=== PATIENT | male | born 1955 | race Caucasian/White ===

== ENCOUNTER 2022-08-10 23:26 | Inpatient (IN) | payer MEDICARE, OTHER ==
[~2022-08-10] VITALS: Ht 182.9 cm; Wt 63.5 kg
--- NOTE | 2022-08-10 23:40 | NUR ---
Patient BIB [facility] ambulance unit 51 from [facility] to be medically cleared to be seen by PET TEAM and admitted to MHU. Per report from transport team, patient had Ativan 2mg and Zofran 4mg IVP at 1900 today prior to be transported. Patient denies SI at this time but admits to be depressed.
[2022-08-11] MEDS ORDERED: ALBU8.5H8 IH (00:02)
[2022-08-11] MEDS ORDERED: METH-806 PO (00:02)
[2022-08-11] MEDS ORDERED: SIMV-49 PO (00:02)
[2022-08-11] MEDS ORDERED: DOCU-141 PO (00:02)
[2022-08-11] MEDS ORDERED: MULT-594 PO (00:02)
[2022-08-11] MEDS ORDERED: SULF1TAB48 PO (00:02)
[2022-08-11] MEDS ORDERED: CEPH500C2 PO (00:02)
[2022-08-11] MEDS ORDERED: LOSA50TA39 PO (00:02)
[2022-08-11 00:17] LABS: HEMATOCRIT 44.1 % (36.7-47.1); MEAN CORPUSCULAR HEMOGLOBIN 34.1 uug (23.8-33.4); MEAN CORPUSCULAR VOLUME 103.1 fL (73.0-96.2); PLATELET COUNT (AUTO) 342 K/uL (152-348)
[2022-08-11 00:34] LABS: *BILIRUBIN,URIN NEGATIVE (NEGATIVE); *BLOOD, URINE NEGATIVE (NEGATIVE); *CLARITY,URINE CLEAR (CLEAR); *COLOR,URINE YELLOW (YELLOW); *KETONES,URINE 1+ (NEGATIVE); *UROBILINOGEN,URINE 0.2 E.U./dl (NORMAL); LEUKOCYTE ESTERASE ,URINE NEGATIVE (NEGATIVE); NITRITE, URINE NEGATIVE (NEGATIVE); PH,URINE 5.5 (5.0-8.0); UGLUCOSE NEGATIVE (NEGATIVE)
[2022-08-11 00:36] LABS: ETHANOL 225 MG/DL (0-0)
[2022-08-11 00:40] LABS: ALANINE AMINOTRANSFERASE 174 U/L (16-63); ALKALINE PHOSPHATASE 83 U/L (50-136); ASPARTATE AMINOTRANSFERASE 170 U/L (15-37); BILIRUBIN,DIRECT 0.2 mg/dL (0.0-0.2); BILIRUBIN,TOTAL 0.7 mg/dL (0.2-1.0); CARBON DIOXIDE 28 mmol/L (21-32); CHLORIDE 99 mmol/L (98-107); CREATINE KINASE, TOTAL 117 U/L (39-308); CREATININE 0.7 mg/dL (0.6-1.3); GLUCOSE 61 mg/dL (74-106); POTASSIUM 3.9 mmol/L (3.5-5.1); TOTAL PROTEIN, SERUM 7.9 g/dL (6.4-8.2); UREA NITROGEN, BLOOD 13 mg/dL (7-18)
[2022-08-11 00:42] LABS: ACETAMINOPHEN < 2.0 ug/mL (10-30)
[2022-08-11 00:44] LABS: *AMPHETAMINE, URINE NEGATIVE (NEGATIVE); *CANNABINOID, URINE POSITIVE (NEGATIVE); *COCCAINE, URINE NEGATIVE (NEGATIVE); *PHENCYCLIDINE SCREEN,URINE NEGATIVE (NEGATIVE)
[2022-08-11 01:15] LABS: THYROID STIMULATING HORMONE 2.181 mIU/mL (0.358-3.740)
[2022-08-11] MEDS ORDERED: DEXTROSE 50% 50 ML DISP.SYRIN ONE (02:55)
[2022-08-11] MEDS ORDERED: DEXTROSE 50% 50 ML DISP.SYRIN IV ONE (03:00)
--- NOTE | 2022-08-11 04:52 | NUR ---
CALLED [facility] FOR PANEL CALL. AWAITING FOR DR AUSTIN HOSPITALIST ON-CALL TO CALL BACK
--- NOTE | 2022-08-11 04:56 | NUR ---
Dr. Judge on panel call with Dr. Trevino. Patient accepted for admission to Telemetry unit, Dx Metabolic acidosis, Hypoglycemia, ETOH Intoxication.
[2022-08-11] MEDS ORDERED: LORAZEPAM 2 MG/1 ML VIAL IV PRN (05:00)
[2022-08-11] MEDS ORDERED: hydrALAZINE HCL 20 MG/1 ML VIAL IV PRN (05:00)
[2022-08-11] MEDS ORDERED: ONDANSETRON 4 MG/2 ML VIAL IV PRN (05:00)
[2022-08-11] MEDS ORDERED: MORPHINE SULFATE 2 MG/1 ML DISP.SYRIN IVP PRN (05:00)
[2022-08-11] MEDS ORDERED: ACETAMINOPHEN 325 MG TABLET PO PRN (05:00)
--- NOTE | 2022-08-11 05:15 | NUR ---
Informed patient sister Belen that patient is being admitted. Sister also spoke to Dr. Judge.
--- NOTE | 2022-08-11 06:15 | NUR ---
Admitted patient in tele floor under the care of Dr Trevino, patient alert oriented, hard of hearing on both ears but no hearing aid, dx alcohol withdrawal, body check was done with both arms bruises, left arm open wound, left eye bruise, left chick bone bruises, patient denies SI at this time, stated "I'm a [employer] and I will never do that." endorsed to charge and next am RN patient history of SI. endorsed to closely monitor.
--- NOTE | 2022-08-11 06:29 | NUR ---
Pt. admitted to Telemetry Unit, room 308, under care of Dr. Trevino. Belongs List completed.
[2022-08-11 07:41] VITALS: BP 121/93
[2022-08-11] MEDS: IV NS 1000 ML 1,000 ML IV SCH ×2 (07:56→19:10)
[2022-08-11] MEDS: PANTOPRAZOLE SODIUM 40 MG VIAL IV SCH ×2 (08:24→20:40)
[2022-08-11] MEDS: DOCUSATE SODIUM 100 MG CAPSULE PO SCH ×2 (08:25→17:41)
[2022-08-11] MEDS: MULTIVITAMINS,THERAPEUTIC TABLET PO SCH (08:25)
[2022-08-11] MEDS: CHLORDIAZEPOXIDE HCL 25 MG CAPSULE PO SCH ×3 (08:25→17:41)
[2022-08-11] MEDS: LOSARTAN POTASSIUM 50 MG TABLET PO SCH (08:25)
--- NOTE | 2022-08-11 08:27 | NUR ---
PATIENT SEEN AND EXAMINED BY DR GIBBONS WITH NEW ORDERS AND NOTED.
[2022-08-11] MEDS: HEPARIN SODIUM,PORCINE 5,000 UNITS/ML VIAL SQ SCH ×2 (09:17→17:44)
[2022-08-11] MEDS: THIAMINE HCL 100 MG TABLET PO SCH (10:16)
[2022-08-11] MEDS: FOLIC ACID 1 MG TABLET PO SCH (10:16)
--- NOTE | 2022-08-11 10:30 | NUR ---
ALERT BUT MIXED UP VERBALLY RESPONSIVE NOTED TREMORS OF BOTH UPPER EXTREMITIES ON LIBRIUM ORDERED ASSISTED WITH USING THE URINAL WITH BASILIO COLORED URINE CALL LIGHT AND PERSONAL BELONGINGS WITHIN EASY REACH MADE COMFORTABLE WILL CONTINUE TO OBSERVE.
[2022-08-11] MEDS: ALBUTEROL SULFATE 2.5 MG/3 ML NEBU NEB SCH ×4 (11:28→20:11)
[2022-08-11 11:39] VITALS: BP 143/82
--- NOTE | 2022-08-11 14:21 | NUR ---
DR CHAMORRO HERE AND SEEN PATIENT WITH NO NEW ORDERS AT THIS TIME
[2022-08-11 15:57] VITALS: BP 123/83
--- NOTE | 2022-08-11 18:00 | NUR ---
RESTING IN BED WITH IVF ORDERED DENIES DISCOMFORTS WILL CONTINUE TO OBSERVE
[2022-08-11 20:00] VITALS: BP 128/86
[2022-08-11] MEDS ORDERED: SIMVASTATIN 40 MG TABLET PO SCH (21:00)
[2022-08-12] VITALS: BP 132/96
[2022-08-12 04:00] VITALS: BP 140/98
--- NOTE | 2022-08-12 07:05 | NUR ---
Slept well throughout the night, easy to arouse alert and oriented x3. No acute distress noted. No alcohol withdrawal symptoms noted. IVF infusing well. Sinus rhythm on tele. Needs attended.
[2022-08-12] MEDS: IV NS 1000 ML 1,000 ML IV SCH ×2 (07:13→18:35)
--- NOTE | 2022-08-12 07:20 | NUR ---
RECEIVED PATIENT IN BED WITH EYES CLOSED BUT IS EASILY AROUSABLE ON ROUNDS ON ROOM AIR WITH NO SHORTNESS OF BREATH REMAIN ON IVF ORDERED WITH NO S/S OF INFILTERATION ON SITE TELE IS SR WITH NO ECTOPY AT THIS TIME VOIDING WELL USING THE URINAL BASILIO COLORED URINE CALL LIGHT AND PERSONAL BELONGINGS ARE WITHIN EASY REACH AT THIS TIME WILL CONTINUE TO OBSERVE.
[2022-08-12 07:24] LABS: HEMATOCRIT 38.7 % (36.7-47.1); MEAN CORPUSCULAR HEMOGLOBIN 34.9 uug (23.8-33.4); MEAN CORPUSCULAR VOLUME 103.5 fL (73.0-96.2); PLATELET COUNT (AUTO) 286 K/uL (152-348)
[2022-08-12] MEDS: ALBUTEROL SULFATE 2.5 MG/3 ML NEBU NEB SCH ×4 (07:41→22:26)
[2022-08-12 07:54] LABS: ALANINE AMINOTRANSFERASE 89 U/L (16-63); ALKALINE PHOSPHATASE 71 U/L (50-136); ASPARTATE AMINOTRANSFERASE 62 U/L (15-37); BILIRUBIN,TOTAL 1.1 mg/dL (0.2-1.0); CARBON DIOXIDE 31 mmol/L (21-32); CHLORIDE 100 mmol/L (98-107); CREATININE 0.6 mg/dL (0.6-1.3); GLUCOSE 85 mg/dL (74-106); PHOSPHOROUS 2.9 mg/dL (2.5-4.9); POTASSIUM 3.6 mmol/L (3.5-5.1); TOTAL PROTEIN, SERUM 6.2 g/dL (6.4-8.2); UREA NITROGEN, BLOOD 10 mg/dL (7-18)
[2022-08-12] MEDS: PANTOPRAZOLE SODIUM 40 MG VIAL IV SCH (08:54)
[2022-08-12] MEDS: MULTIVITAMINS,THERAPEUTIC TABLET PO SCH (08:55)
[2022-08-12] MEDS: CHLORDIAZEPOXIDE HCL 25 MG CAPSULE PO SCH ×3 (08:55→16:32)
[2022-08-12] MEDS: FOLIC ACID 1 MG TABLET PO SCH (08:55)
[2022-08-12] MEDS: LOSARTAN POTASSIUM 50 MG TABLET PO SCH (08:55)
[2022-08-12] MEDS: DOCUSATE SODIUM 100 MG CAPSULE PO SCH ×2 (08:55→16:32)
[2022-08-12] MEDS: THIAMINE HCL 100 MG TABLET PO SCH (08:55)
[2022-08-12] MEDS: HEPARIN SODIUM,PORCINE 5,000 UNITS/ML VIAL SQ SCH ×2 (09:33→16:33)
[2022-08-12 11:40] VITALS: BP 122/84
--- NOTE | 2022-08-12 13:00 | NUR ---
AWAKE MORE ALERT STILL HAS TREMORS BOTH HANDS MEDICATION GIVEN ORDERED IVF IN PROGRESS ORDERED USING URINAL WITH ADEQUATE OUTPUT CALL LIGHTS AND PERSONAL BELONGINGS ARE WITHIN EASY REACH AT THIS TIME WILL CONTINUE TO OBSERVE.
--- NOTE | 2022-08-12 14:20 | NUR ---
NEW ORDERS NOTED FOR PSYCH CONSULT PER DR YARBROUGH CALLED [facility] D[facility] AND NOTIFIED HIM OF THE PSYCH ORDER AND HE STATED WILL SEE PATIENT TOMORROW.
[2022-08-12 15:40] VITALS: BP 116/77
--- NOTE | 2022-08-12 18:00 | NUR ---
RESTING IN BED WITH IVF ORDERED DENIES DISCOMFORTS WILL CONTINUE TO OBSERVE.
[2022-08-12 20:00] VITALS: BP 119/78
[2022-08-13 03:59] VITALS: BP 131/79
--- NOTE | 2022-08-13 06:45 | NUR ---
Slept well, no alcohol withdrawal symptoms noted. Not on any form of distress. IVF infusing. Needs attended.
[2022-08-13] MEDS: PANTOPRAZOLE SODIUM 40 MG TABLET.DR PO SCH (07:09)
[2022-08-13] MEDS: IV NS 1000 ML 1,000 ML IV SCH ×2 (07:11→19:56)
[2022-08-13] MEDS: ALBUTEROL SULFATE 2.5 MG/3 ML NEBU NEB SCH ×4 (07:40→19:55)
[2022-08-13 07:42] LABS: ALANINE AMINOTRANSFERASE 68 U/L (16-63); ALKALINE PHOSPHATASE 65 U/L (50-136); ASPARTATE AMINOTRANSFERASE 48 U/L (15-37); BILIRUBIN,TOTAL 0.7 mg/dL (0.2-1.0); CARBON DIOXIDE 30 mmol/L (21-32); CHLORIDE 101 mmol/L (98-107); CHOLESTEROL 229 mg/dL (<200); CREATININE 0.5 mg/dL (0.6-1.3); GLUCOSE 89 mg/dL (74-106); HDL CHOLESTEROL 122 mg/dL (40-60); POTASSIUM 3.8 mmol/L (3.5-5.1); TOTAL PROTEIN, SERUM 5.8 g/dL (6.4-8.2); TRIGLYCERIDES 55 MG/DL (30-150); UREA NITROGEN, BLOOD 7 mg/dL (7-18)
[2022-08-13 07:49] LABS: HEMATOCRIT 36.4 % (36.7-47.1); MEAN CORPUSCULAR VOLUME 103.6 fL (73.0-96.2); PLATELET COUNT (AUTO) 261 K/uL (152-348)
[2022-08-13] MEDS: MULTIVITAMINS,THERAPEUTIC TABLET PO SCH (09:11)
[2022-08-13] MEDS: DOCUSATE SODIUM 100 MG CAPSULE PO SCH ×2 (09:11→17:12)
[2022-08-13] MEDS: THIAMINE HCL 100 MG TABLET PO SCH (09:11)
[2022-08-13] MEDS: CHLORDIAZEPOXIDE HCL 25 MG CAPSULE PO SCH ×3 (09:11→17:12)
[2022-08-13] MEDS: FOLIC ACID 1 MG TABLET PO SCH (09:11)
[2022-08-13] MEDS: HEPARIN SODIUM,PORCINE 5,000 UNITS/ML VIAL SQ SCH ×2 (09:12→17:13)
[2022-08-13] MEDS: LOSARTAN POTASSIUM 50 MG TABLET PO SCH (09:18)
[2022-08-13 11:05] VITALS: BP 123/68
--- NOTE | 2022-08-13 11:06 | NUR ---
CRITICAL LAB: MAG 1.0 L, I was notified by Letha Archibald, and I notified Dr. Garcia.
[2022-08-13] MEDS ORDERED: MAGNESIUM OXIDE 400 MG TABLET PO ONE (11:45)
[2022-08-13 15:44] VITALS: BP_SYST 120; BP_SYST 123; BP_DIAS 30; BP_DIAS 82
--- NOTE | 2022-08-13 19:55 | NUR ---
rounds made patient in bed watching tv no respiratory distress noted on room air rr 20 saturation 94 % , patient awake , alert able to answer simple questions, advised patient to call for help and to use the call villatoro .respiratory therapist at bedside given patient breathing treatment .
[2022-08-13 20:00] VITALS: BP 131/87
--- NOTE | 2022-08-13 20:00 | NUR ---
hang follow up maintenance ivf normal saline at 80 ml/hr infusing via the left hand h/L.ivF site CDI .
--- NOTE | 2022-08-13 21:30 | NUR ---
patient called and requesting for something to eat and drink . provided applejuice ,cranberry juice , vanilla ,chocolate pudding and tuna sandwich . patient able to feed self .
--- NOTE | 2022-08-13 21:50 | NUR ---
patient called again and requesting for pain medication c/o generalized body pain . given prn morphine .
--- NOTE | 2022-08-13 23:30 | NUR ---
patient uses the urinal but at times he misses ,incontinent of urine changed soiled linens and gown .urinal placed within reach .
[2022-08-14 03:33] VITALS: BP 144/96
--- NOTE | 2022-08-14 03:52 | NUR ---
incontinent of urine with band builder help changed soiled linens and gown .provided clean blanket and sheet . patient verbalized he has a headache given Tylenol c/o headache and wants sleeping pill informed that its too late for sleeping medication its already 0354 next time to asked for it early .
[2022-08-14] MEDS: PANTOPRAZOLE SODIUM 40 MG TABLET.DR PO SCH (06:17)
[2022-08-14 06:46] LABS: HEMATOCRIT 34.8 % (36.7-47.1); MEAN CORPUSCULAR HEMOGLOBIN 34.9 uug (23.8-33.4); MEAN CORPUSCULAR VOLUME 103.6 fL (73.0-96.2); PLATELET COUNT (AUTO) 258 K/uL (152-348)
[2022-08-14] MEDS: ALBUTEROL SULFATE 2.5 MG/3 ML NEBU NEB SCH ×3 (07:19→15:11)
[2022-08-14 07:30] LABS: CARBON DIOXIDE 30 mmol/L (21-32); CHLORIDE 102 mmol/L (98-107); CREATININE 0.6 mg/dL (0.6-1.3); GLUCOSE 104 mg/dL (74-106); PHOSPHOROUS 3.1 mg/dL (2.5-4.9); POTASSIUM 4.2 mmol/L (3.5-5.1); UREA NITROGEN, BLOOD 9 mg/dL (7-18)
[2022-08-14 08:13] LABS: MAGNESIUM 1.2 mg/dL (1.8-2.4)
[2022-08-14] MEDS: IV NS 1000 ML 1,000 ML IV SCH (08:27)
[2022-08-14] MEDS: MULTIVITAMINS,THERAPEUTIC TABLET PO SCH (08:27)
[2022-08-14] MEDS: HEPARIN SODIUM,PORCINE 5,000 UNITS/ML VIAL SQ SCH ×2 (08:28→17:05)
[2022-08-14] MEDS: THIAMINE HCL 100 MG TABLET PO SCH (08:28)
[2022-08-14] MEDS: FOLIC ACID 1 MG TABLET PO SCH (08:28)
[2022-08-14] MEDS: DOCUSATE SODIUM 100 MG CAPSULE PO SCH ×2 (08:28→17:04)
[2022-08-14] MEDS: LOSARTAN POTASSIUM 50 MG TABLET PO SCH (08:28)
[2022-08-14] MEDS: MAGNESIUM SULFATE/D5W 100 ML IV SCH ×4 (08:29→11:41)
[2022-08-14] MEDS ORDERED: ENSURE ENLIVE (VAN) 240 ML LIQUID PO SCH (09:00)
[2022-08-14 12:00] VITALS: BP 120/84
[2022-08-14] MEDS ORDERED: ACET325T53 PO (13:04)
[2022-08-14] MEDS ORDERED: PANT40TA49 PO (13:04)
[2022-08-14] MEDS ORDERED: ATOR10TA PO (13:04)
[2022-08-14] MEDS ORDERED: THIA100T13 PO (13:04)
[2022-08-14] MEDS ORDERED: Lactose-Free Food PO (13:04)
[2022-08-14] MEDS ORDERED: FOLI1TAB94 PO (13:04)
[2022-08-14] MEDS ORDERED: HYDR-4209 PO (13:04)
--- NOTE | 2022-08-14 13:17 | NUR ---
GUERLINE consult requested for a 66 year old male patient on medsurg. Patient is alert and oriented X3 and presents with anxious mood and congruent affect. Patient states his primary contact is his son, Mejia Borges ([phone]). Patient states that he currently lives on a [place] on the [place]. Patient states he is driving, does not have any medical equipment at home and is retired. Patient states he has a history of alcohol abuse and the toxicology report was positive for cannabinoids and the alcohol level was 225. Patient states he has been going to AA meetings for 15 years and has a sponsor named, Wilder Tod that has been his sponsor for 13 years. GUERLINE provided the patient with substance abuse resources for [address] [address] ([phone]), [facility] [address] [facility] [address] ([phone]), and [address] [address] ([phone]). Patient appears motivated for change and is going to continue going to AA meetings. Patient denied a history of psychiatric diagnosis and denied suicidal or homicidal ideation. Patient states he is open to going to a correction facility at discharge and GUERLINE spoke with case managers, Seth for SNF placement.
[2022-08-14 16:00] VITALS: BP 128/78
--- NOTE | 2022-08-14 16:58 | NUR ---
Pt. discharged to [facility]. Picked up by 2 transporters. Pt. noted to be stable upon the discharge. All necessary document signed. Body check done and picture included in pt. chart. IV line removed. All personal belonging returned to the patient. Report given to Jewel.
[2022-08-14] MEDS ORDERED: ATORVASTATIN 10 MG TABLET PO SCH (21:00)
== END 2022-08-14 17:30 | DRG 897 ==
LOC: ER 23:35 → TELE3 08-11 05:05 → MEDSURG3 08-12 11:03
PROVIDERS: ADMIT Internal Medicine; ATTEND Internal Medicine
DX: F10.239 Alcohol dependence with withdrawal, unspecified (principal); Z68.1 Body mass index [BMI] 19.9 or less, adult; E87.21 Acute metabolic acidosis; E44.1 Mild protein-calorie malnutrition; R45.851 Suicidal ideations; R62.7 Adult failure to thrive; F10.229 Alcohol dependence with intoxication, unspecified; Y90.7 Blood alcohol level of 200-239 mg/100 ml; R55 Syncope and collapse; S00.83XA Contusion of other part of head, initial encounter; W19.XXXA Unspecified fall, initial encounter; Y92.89 Other specified places as the place of occurrence of the external cause; R74.01 Elevation of levels of liver transaminase levels; E16.2 Hypoglycemia, unspecified; I10 Essential (primary) hypertension; J44.9 Chronic obstructive pulmonary disease, unspecified; Z87.891 Personal history of nicotine dependence; Z88.1 Allergy status to other antibiotic agents; Z85.46 Personal history of malignant neoplasm of prostate; F32.A Depression, unspecified; M89.9 Disorder of bone, unspecified; D75.89 Other specified diseases of blood and blood-forming organs; R29.6 Repeated falls; E78.5 Hyperlipidemia, unspecified; G89.29 Other chronic pain; Z90.79 Acquired absence of other genital organ(s); Z20.822 Contact with and (suspected) exposure to COVID-19; F12.90 Cannabis use, unspecified, uncomplicated; Z60.9 Problem related to social environment, unspecified; R53.1 Weakness; S00.12XA Contusion of left eyelid and periocular area, initial encounter
CPT/HCPCS: 36415; 71045; 73020; 83735; 84100; 84443; 85025; 93005; 93307; 94640; 94664; 94760; A4663; C9113; G0378; G0480; J1644; J2270; J3475; J3490; J7040